=== PATIENT | female | born 1965 | race American Indian/Alaskan Native ===

== ENCOUNTER 2020-04-27 18:53 | Emergency (ER) | payer SELFPAY ==
[2020-04-27 21:04] LABS: Basophils # (Auto) 0.1 K/mm3 (0.0-0.1); Basophils % (Auto) 0.4 % (0.0-1.8); Hematocrit 44.1 % (30.3-42.9); Hemoglobin 14.9 gm/dl (10.1-14.3); Lymphocytes # (Auto) 1.3 K/mm3 (1.2-5.4); Mean Corpuscular HGB Conc 34 % (30-34); Mean Corpuscular Volume 92 fl (79-97); Monocytes # (Auto) 0.3 K/mm3 (0.0-0.8); Monocytes % (Auto) 2.3 % (0.0-7.3); Platelet Count 227 K/mm3 (140-440); Red Cell Distribution Width 13.1 % (13.2-15.2)
[2020-04-27 21:16] LABS: Bilirubin,Urine NEG (Negative); Blood,Urine NEG (Negative); Color,Urine Straw (Yellow); Mucus,Urine FEW /HPF; Urobilinogen,Urine < 2.0 mg/dL (<2.0); WBC,Urine < 1.0 /HPF (0.0-6.0)
[2020-04-27 21:23] LABS: Alanine Aminotransferase 19 units/L (7-56); Albumin 4.6 g/dL (3.9-5); BUN/Creatinine Ratio 20; Blood Urea Nitrogen 14 mg/dL (7-17); Calcium 9.7 mg/dL (8.4-10.2); Hemolysis Index 8
[2020-04-28] MEDS ORDERED: SODIUM CHLORIDE 0.9% 1000 ML 1,000 ML IV ONE (02:35)
[2020-04-28] MEDS ORDERED: ONDANSETRON 4 MG/2 ML INJ IV ONE (02:35)
--- NOTE | 2020-04-28 02:37 | Emergency Department Report ---
ED Abdominal Pain HPI - General Chief Complaint: Abdominal Pain Stated Complaint: ABD PAIN/DISORIENTED PUI?: Yes Time Seen by Provider: 04/28/20 02:33 Source: patient Mode of arrival: Ambulatory Limitations: No Limitations - History of Present Illness Initial Comments: The patient was evaluated in the emergency department for symptoms described in the history of present illness. He/she was evaluated in the context of the glob al COVID-19 pandemic, which necessitated consideration that the patient might be at risk for infection with the virus that causes COVID-19. Institutional protocols and algorithms that pertain to the evaluation of patients at risk for COVID-19 are in a state of rapid change based on information released by regulatory bodies including the CDC and federal and state organizations. These policies and algorithms were followed during the patient's care in the emergency department. Please note that these policies, procedures and recommendations changed on a rapid basis. 55-year-old -[place] female with a past medical history of ovarian cancer, diabetes and hypertension presents to the emergency room for abdominal pain x2 days with nausea vomiting and diarrhea. Patient states she last vomited around 3 PM yesterday and last loose stool was 2 PM yesterday. She denies any fever but does admit to increased urination. Patient states she has not been able to hold down any fluids or food. She reports she is currently takes Metformin Lantus 20 units at night and was started on short acting insulin but has not picked it up from the pharmacy. Patient reports that she saw her doctor on . MD Complaint: abdominal pain Location: epigastric - Related Data Previous Rx's Medication Instructions Recorded Last Taken Type Ondansetron [Zofran Odt] 4 mg PO Q8HR #12 tab.rapdis 04/28/20 Unknown Rx Allergies Allergy/AdvReac Type Severity Reaction Status Date / Time No Known Allergies Allergy Unverified 04/27/20 20:33 ED Review of Systems ROS: Stated complaint: ABD PAIN/DISORIENTED Other details as noted in HPI ED Past Medical Hx - Past Medical History Previous Medical History?: Yes Hx Hypertension: Yes Hx Diabetes: Yes Hx of Cancer: Yes (Ovarian) - Surgical History Past Surgical History?: Yes Additional Surgical History: Breast reduction - Social History Smoking Status: Never Smoker Substance Use Type: None - Medications Home Medications: Home Medications Medication Instructions Recorded Confirmed Last Taken Type Ondansetron [Zofran Odt] 4 mg PO Q8HR #12 tab.rapdis 04/28/20 Unknown Rx ED Physical Exam - General Limitations: No Limitations General appearance: alert, in no apparent distress - Head Head exam: Present: atraumatic, normocephalic - Eye Eye exam: Present: normal appearance - ENT ENT exam: Present: mucous membranes moist - Neck Neck exam: Present: normal inspection - Respiratory Respiratory exam: Present: normal lung sounds bilaterally. Absent: respiratory distress - Cardiovascular Cardiovascular Exam: Present: regular rate, normal rhythm. Absent: systolic murmur, diastolic murmur, rubs, gallop - GI/Abdominal GI/Abdominal exam: Present: soft, tenderness. Absent: distended, guarding, rebound - Extremities Exam Extremities exam: Present: normal inspection, full ROM - Back Exam Back exam: Present: normal inspection - Neurological Exam Neurological exam: Present: alert, oriented X3, normal gait - Psychiatric Psychiatric exam: Present: normal affect, normal mood - Skin Skin exam: Present: warm, dry, intact, normal color. Absent: rash ED Course Vital Signs 04/27/20 20:27 Temperature 98.0 F Pulse Rate 98 H Respiratory 18 Rate Blood Pressure 154/88 O2 Sat by Pulse 96 Oximetry ED Medical Decision Making - Lab Data Result diagrams: 04/27/20 20:49 04/27/20 20:49 - Radiology Data Radiology results: report reviewed [address] [address] Cat Scan Report Signed Patient: DERRELL ROCK MR#: [id number] : 1965 Acct:[id number] Age/Sex: 55 / F ADM Date: 04/27/20 Loc: ED Attending Dr: Ordering Physician: NAT MAYNARD Date of Service: 04/28/20 Procedure(s): CT abdomen pelvis w con Accession Number(s): [id number] cc: NAT MAYNARD CT ABDOMEN AND PELVIS WITH CONTRAST HISTORY: Acute abdominal pain with n/v and diarrhea. COMPARISON: None. TECHNIQUE: CT images of the abdomen and pelvis were obtained following administration of intravenous contrast. All CT scans at this location are performed using CT dose reduction for ALARA by means of automated exposure control. CONTRAST: 100 ml of intravenous contrast administered. FINDINGS: Lungs/bones: Lung bases are clear. There are degenerative changes in the spine and pelvis with nothing acute. Abdomen/pelvis: There is moderate hepatic steatosis. The liver is also mildly enlarged. The gallbladder, spleen, pancreas, kidneys, and proximal GI tract appear normal. There is mild bilateral renal thickening. There is a small fat-containing umbilical hernia. Urinary bladder and reproductive organs are unremarkable with no pelvic free fluid or acute colonic abnormality identified. There is mild colonic diverticulosis. IMPRESSION: 1. No acute abnormality identified. 2. Incidental findings as above. Signer Name: Arnie Noel MD Signed: 04/28/2020 4:26 AM Workstation Name: [id number] Transcribed By: STEVE Dictated By: Arnie Noel MD Electronically Authenticated By: Arnie Noel MD Signed Date/Time: 04/28/20425 DD/ 3 TD/TT: - Medical Decision Making 55-year-old -[place] female with a past medical history of ovarian cancer, diabetes and hypertension presents to the emergency room for abdominal pain x2 days with nausea vomiting and diarrhea. Patient states she last vomited around 3 PM yesterday and last loose stool was 2 PM yesterday. She denies any fever but does admit to increased urination. Patient states she has not been able to hold down any fluids or food. She reports she is currently takes Metformin Lantus 20 units at night and was started on short acting insulin but has not picked it up from the pharmacy. Patient reports that she saw her doctor on . CT of abdomen shows no acute abnormalities. Does show some hepatic enlargement fatty liver and mild renal thickening bilateral. Patient had a sodium of 133 potassium a 3.5. Mild elevation of white count of 14.5. Blood glucose of 374. Any ketones with greater than 500 Leukos in the urine. Patient was started on fluids Zofran. Check reports blood sugar 346. Patient is still sipping on Sprite. She will be given 8 units of insulin and be discharged home. Critical care attestation.: If time is entered above; I have spent that time in minutes in the direct care of this critically ill patient, excluding procedure time. ED Disposition Clinical Impression: Gastroenteritis Disposition: DC-01 TO HOME OR SELFCARE Is pt being admited?: No Does the pt Need Aspirin: No Condition: Stable Instructions: Viral Gastroenteritis, Adult, Abdominal Pain (ED) Additional Instructions: Labs are stable CT shows no acute abnormalities. Please take the Zofran as needed for nausea and vomiting. Be sure to take your chronic medications as prescribed and follow-up with your primary care provider. Prescriptions: Ondansetron [Zofran Odt] 4 mg PO Q8HR #12 tab.rapdis Referrals: PRIMARY CARE, [Primary Care Provider] - 3-5 Days Juan Carr [Other] - 3-5 Days
--- NOTE | 2020-04-28 04:30 | Cat Scan Report ---
CT ABDOMEN AND PELVIS WITH CONTRAST HISTORY: Acute abdominal pain with n/v and diarrhea. COMPARISON: None. TECHNIQUE: CT images of the abdomen and pelvis were obtained following administration of intravenous contrast. All CT scans at this location are performed using CT dose reduction for ALARA by means of automated exposure control. CONTRAST: 100 ml of intravenous contrast administered. FINDINGS: Lungs/bones: Lung bases are clear. There are degenerative changes in the spine and pelvis with nothi ng acute. Abdomen/pelvis: There is moderate hepatic steatosis. The liver is also mildly enlarged. The gallblad lashaun, spleen, pancreas, kidneys, and proximal GI tract appear normal. There is mild bilateral renal th ickening. There is a small fat-containing umbilical hernia. Urinary bladder and reproductive organs are unremarkable with no pelvic free fluid or acute colonic a bnormality identified. There is mild colonic diverticulosis. IMPRESSION: 1. No acute abnormality identified. 2. Incidental findings as above. Signer Name: Arnie Noel MD Signed: 04/28/2020 4:26 AM Workstation Name: [id number]
[2020-04-28] MEDS ORDERED: INSULIN REGULAR, HUMAN 100 UNIT/ML 3ML VIAL IV ONE (05:16)
[2020-04-28 07:45] VITALS: BP 182/94
== END 2020-04-28 07:47 | disposition home or self-care (01) ==
LOC: ED 18:53
DX: K52.9 Noninfective gastroenteritis and colitis, unspecified (principal); I10 Essential (primary) hypertension; E11.9 Type 2 diabetes mellitus without complications; Z79.899 Other long term (current) drug therapy
CPT/HCPCS: 36415; 74177; 80053; 81001; 82962; 83690; 85025; 96361; 96374; 96375; 99284; J2405; J7030; Q9967; J1815